=== PATIENT | male | born 1995 | race Caucasian/White ===

== ENCOUNTER 2019-02-23 14:31 | Emergency (ER) | payer OTHER ==
[~2019-02-23] VITALS: Ht 185.4 cm; Wt 120.2 kg
[2019-02-23 14:32] VITALS: BP 154/99
[2019-02-23] MEDS ORDERED: MEDROLDOSEPACK PO (15:11)
[2019-02-23] MEDS ORDERED: IBUPROFEN 800800 M1 PO (15:11)
== END 2019-02-23 15:18 | disposition home or self-care (01) ==
LOC: M.ERS 14:31
DX: M10.021 Idiopathic gout, right elbow (principal)

== ENCOUNTER 2019-03-30 00:06 | Emergency (ER) | payer OTHER ==
[~2019-03-30] VITALS: Ht 210.8 cm; Wt 122.5 kg
[~2019-03-30 00:06] MED LIST: IBUPROFEN 800800 M1 PO; MEDROLDOSEPACK PO
[2019-03-30 01:01] LABS: ABSOLUTE BASOPHILS 0.1 thou/uL (0.0-0.2); ABSOLUTE EOSINOPHILS 0.1 thou/uL (0.0-0.7); ABSOLUTE LYMPHOCYTES 1.9 thou/uL (0.8-5.3); ABSOLUTE MONOCYTES 1.1 thou/uL (0.0-1.2); ABSOLUTE NEUTROPHILS 6.3 thou/uL (1.6-8.1); BASOPHILS 1.1 %; EOSINOPHILS 0.6 %; HEMATOCRIT 39.2 % (42.0-52.0); HEMOGLOBIN 13.4 gm/dL (14.0-18.0); LYMPHOCYTES 20.2 %; MCH 28.7 pg (26.0-34.0); MCHC 34.2 g/dL (28.0-37.0); MCV 83.9 fL (80.0-100.0); MONOCYTES 11.4 %; MPV 7.7 fl. (7.2-11.1); NUCLEATED RBCS 0 /100WBC; PLATELET COUNT* 349 thou/uL (150-400); POLYS 66.7 %; RBC 4.67 mil/uL (4.50-6.00); RDW-CV 14.1 % (10.5-14.5); WBC 9.4 thou/uL (4.0-11.0)
[2019-03-30 01:12] LABS: CALCIUM 9.5 mg/dL (8.5-10.1); POTASSIUM 4.3 mmol/L (3.5-5.1)
[2019-03-30 01:20] LABS: ALBUMIN 3.7 g/dL (3.4-5.0); TOTAL BILIRUBIN 0.6 mg/dL (<0.1-1.0)
[2019-03-30 03:09] VITALS: BP 134/85
--- NOTE | 2019-03-30 12:54 | EKG ---
[place] [address] ELECTROCARDIOGRAM REPORT Name: KATERINE VALENZUELA JR Room: [facility]#: [id number] Admission: 03/30/19 Attend Phys: Discharge: 03/30/19 Date of : [birth year] Report #: [id number] THIS REPORT FOR: //name// [facility] ED Test Date: 2019-03-30 Test Time: 00:11:50 Pat Name: KATERINE VALENZUELA Department: Room: Gender: M [employer] Inspector: : 1995 Requested By: Olaf Zavala Order Number: [id number] MD: Michael Edge Measurements Intervals [place] Rate: 100 P: 45 SC: 145 QRS: -29 QRSD: 90 T: 30 QT: 338 QTc: 436 Interpretive Statements Sinus tachycardia Inferior infarct, old No previous ECG available for comparison Electronically Signed On 03-30-2019 12:53:59 [employer]PERVIS[employer] by Michael Edge [email or web address] <ELECTRONICALLY SIGNED> By: Michael Edge MD, [facility] 03/30/19 1253 0011 0011 Michael Edge MD, FACC /EPI
== END 2019-03-30 03:11 | disposition home or self-care (01) ==
LOC: M.ERS 00:06
PROVIDERS: Emergency Medicine
DX: R07.89 Other chest pain (principal); M10.9 Gout, unspecified; Z88.1 Allergy status to other antibiotic agents; Z88.6 Allergy status to analgesic agent

== ENCOUNTER 2021-04-26 00:44 | Emergency (ER) | payer OTHER ==
[~2021-04-26] VITALS: Ht 185.4 cm; Wt 124.7 kg
[2021-04-26] MEDS ORDERED: MITIGARE0.6 MG PO (03:15)
[2021-04-26] MEDS ORDERED: ALLOPURINOL 10100 M3 PO (03:15)
[2021-04-26] MEDS ORDERED: INDOMETHACIN 2525 MG PO (03:15)
[2021-04-26] MEDS ORDERED: HYDROCODON-ACE1 EAC8 PO (03:15)
[2021-04-26] MEDS ORDERED: ACYCLOVIR 400400 MG PO (03:22)
[2021-04-26 04:01] VITALS: BP 122/70
== END 2021-04-26 04:06 | disposition home or self-care (01) ==
LOC: M.ERS 00:44
DX: M25.511 Pain in right shoulder (principal); M54.2 Cervicalgia; Z88.6 Allergy status to analgesic agent; Z88.1 Allergy status to other antibiotic agents; Z88.5 Allergy status to narcotic agent